=== PATIENT | female | born 1995 | race Caucasian/White ===

== ENCOUNTER 2016-09-18 18:29 | Emergency (ER) | payer OTHER ==
--- NOTE | 2016-09-18 18:49 | PDOC ---
Rapid Medical Evaluation Medical Evaluation: Allergies Allergy/AdvReac Type Severity Reaction Status Date / Time shellfish derived Allergy Verified 09/18/16 18:46 09/18/16 18:46 20 yo F c/o right sided diff hearing after taking zithromax 500mg (@1530hrs). Pt was seen today by her PMD (DR. Covarrubias) for right earache. Informed that she has an (R) ear infection and was prescribed zpak.
[2016-09-18 18:50] VITALS: BP 145/90; PULSE 129; TEMP 98.2; BMI 22.4
[2016-09-18] MEDS ORDERED: IBUPROFEN 600 MG TABLET (FP) PO ONE (19:09)
[2016-09-18] MEDS ORDERED: IBUPROFEN 400 MG TABLET (FP) PO ONE (19:18)
--- NOTE | 2016-09-18 19:25 | PDOC ---
History of Present Illness - General Chief Complaint: Ear Problem Stated Complaint: EAR PAIN Time Seen by Provider: 09/18/16 18:50 History Source: Patient Exam Limitations: No Limitations - History of Present Illness Initial Comments: 09/18/16 19:20 20 yr female started zpack today for ear infection and pt states after taking the medication she suddenly had increase in ear pain, causing severe pain right ear and sinus pain. Pt tearful afraid she is having allergic reaction to the antibiotic, 09/18/16 19:28 Severity: mild Associated Symptoms: reports: other (ear pain ) Past History - Past Medical History Allergies/Adverse Reactions: Allergies Allergy/AdvReac Type Severity Reaction Status Date / Time shellfish derived Allergy Verified 09/18/16 18:46 Home Medications: Ambulatory Orders Amoxicillin - [Amoxicillin 875mg Tablet -] 875 mg PO BID #14 tab 09/18/16 Ibuprofen 600 mg PO TID PRN #20 tablet 09/18/16 Oxycodone HCl/Acetaminophen [Percocet 5-325 mg Tablet] 1 tab PO Q6H PRN #4 tablet MDD 4 09/18/16 Anemia: Yes Other medical history: vertigo - Immunization History Immunization Up to Date: Yes - Psycho/Social/Smoking Cessation Hx Anxiety: No Suicidal Ideation: No Smoking History: Never smoked Have you smoked in the past 12 months: No Information on smoking cessation initiated: No Hx Alcohol Use: No Drug/Substance Use Hx: No Substance Use Type: None Review of Systems - Review of Systems Able to Perform ROS?: Yes Is the patient limited Egyptian proficient: No Constitutional: No: Symptoms Reported HEENTM: Yes: See HPI *Physical Exam - Vital Signs Last Vital Signs Temp Pulse Resp BP Pulse Ox 98.2 F 129 H 20 145/90 100 09/18/16 18:47 09/18/16 18:47 09/18/16 18:47 09/18/16 18:47 09/18/16 18:47 - Physical Exam General Appearance: Yes: Nourished, Appropriately Dressed HEENT: positive: EOMI, PARMJIT, Pharynx Normal, Pharyngeal Erythema, Nasal Congestion, Sinus Tenderness, TM Dull, TM Erythema. negative: Tonsillar Exudate , Tonsillar Erythema Neck: positive: Supple Respiratory/Chest: positive: Lungs Clear, Normal Breath Sounds Cardiovascular: positive: Regular Rhythm, Regular Rate Gastrointestinal/Abdominal: positive: Normal Bowel Sounds, Soft Musculoskeletal: positive: Normal Inspection Extremity: positive: Normal Capillary Refill, Normal Inspection, Normal Range of Motion Integumentary: positive: Normal Color, Dry, Warm Neurologic: positive: Fully Oriented, Alert, Normal Mood/Affect, Normal Response , Motor Strength 5 Medical Decision Making - Medical Decision Making 09/18/16 19:21 cc: ear pain for 2 days sore throat, nasal congestion sinus tenderness no fever no vomiting or rash will give motrin , apply topical lidocaine soaked cotton ball in ear for comfort will change to Amoxicllin *DC/Admit/Observation/Transfer Diagnosis at time of Disposition: Acute otitis media Qualifiers: Otitis media type: other nonsuppurative Laterality: right Recurrence: not specified Qualified Code(s): H65.191 - Other acute nonsuppurative otitis media, right ear Acute maxillary sinusitis Qualifiers: Recurrence: non-recurrent Qualified Code(s): J01.00 - Acute maxillary sinusitis , unspecified - Discharge Dispostion Disposition: HOME Condition at time of disposition: Improved - Prescriptions Prescriptions: Amoxicillin - [Amoxicillin 875mg Tablet -] 875 mg PO BID #14 tab Ibuprofen 600 mg PO TID PRN #20 tablet PRN Reason: Pain Oxycodone HCl/Acetaminophen [Percocet 5-325 mg Tablet] 1 tab PO Q6H PRN #4 tablet MDD 4 PRN Reason: Severe Pain - Referrals Referrals: STAFF,NOT ON [Primary Care Provider] - Ted Thayer MD [Staff Physician] - - Patient Instructions Additional Instructions: follow with ENT tomorrow take Amoxicllin as directed for 7 days STOP taking Zpack take motrin 600mg every 6hrs for pain take percocet for severe pain nothing in the ear, no water or Qtips - Post Discharge Activity Work/School Note: Back to School
== END 2016-09-18 19:45 | disposition home or self-care (01) ==
LOC: JER 18:29 → JERFT 18:29
DX: H65.191 Other acute nonsuppurative otitis media, right ear (principal)
CPT/HCPCS: 99281-25

== ENCOUNTER 2017-09-24 00:16 | Emergency (ER) | payer OTHER ==
[2017-09-24 00:26] VITALS: TEMP 98; BMI 24.4
[2017-09-24 00:38] VITALS: BP 122/85; PULSE 103
[2017-09-24] MEDS ORDERED: diphenhydrAMINE HCL 25 MG CAPSULE (FP) PO ONE ×2 (01:00→01:01)
--- NOTE | 2017-09-24 01:00 | PDOC ---
History of Present Illness <Alejandra Lamas - Last Filed: 09/24/17 01:05> - General History Source: Patient Exam Limitations: No Limitations - History of Present Illness Initial Comments: 09/24/17 01:08 The patient is a 21 year old female with no significant past medical history who presents to the ED complaining of hives that began this evening. The patient was recently diagnosed with the flu and took her first dose of Tamiflu today prior to the onset of her symptoms. She reports experiencing hives on her torso and upper arms, which resolved after approximately 2 hours on their own. She also reports difficulty breathing, prompting her to come to the ED. The patient is unsure whether the SOB is secondary to an allergy or congestion. Otherwise no facial swelling or difficulty swallowing. No lightheadedness or LOC. Symptoms are improved in the ED. <Patria Jonas - Last Filed: 09/24/17 01:15> - General Chief Complaint: Allergic Reaction Stated Complaint: ALLERGIC RX TO TAMIFLU Time Seen by Provider: 09/24/17 00:38 Past History - Past Medical History Anemia: Yes COPD: No - Immunization History Immunization Up to Date: Yes - Suicide/Smoking/Psychosocial Hx Smoking History: Never smoked Have you smoked in the past 12 months: No Information on smoking cessation initiated: No Hx Alcohol Use: No Drug/Substance Use Hx: No Substance Use Type: None <Alejandra Lamas - Last Filed: 09/24/17 01:05> <Patria Jonas - Last Filed: 09/24/17 01:15> - Past Medical History Allergies/Adverse Reactions: Allergies Allergy/AdvReac Type Severity Reaction Status Date / Time oseltamivir [From Tamiflu] Allergy Verified 09/24/17 00:22 shellfish derived Allergy Verified 09/18/16 18:46 Home Medications: Ambulatory Orders Amoxicillin - [Amoxicillin 875mg Tablet -] 875 mg PO BID #14 tab 09/18/16 Ibuprofen 600 mg PO TID PRN #20 tablet 09/18/16 Oxycodone HCl/Acetaminophen [Percocet 5-325 mg Tablet] 1 tab PO Q6H PRN #4 tablet MDD 4 09/18/16 Review of Systems - Review of Systems Able to Perform ROS?: Yes Comments:: 09/24/17 01:11 GENERAL/CONSTITUTIONAL: +Fever, malaise. HEAD, EYES, EARS, NOSE AND THROAT: +Sore throat. No change in vision. CARDIOVASCULAR: No chest pain or lightheadedness. RESPIRATORY: +Difficulty breathing (improved). No wheezing or hemoptysis. GASTROINTESTINAL: No abdominal pain, diarrhea or constipation. GENITOURINARY: No dysuria, frequency, or change in urination. MUSCULOSKELETAL: +Diffuse myalgias. No joint pain. No neck or back pain. SKIN: +Hives (resolved) NEUROLOGIC: No headache, vertigo, loss of consciousness, or change in strength/ sensation. ENDOCRINE: No increased thirst. No abnormal weight change. HEMATOLOGIC/LYMPHATIC: No anemia, easy bleeding, or history of blood clots. ALLERGIC/IMMUNOLOGIC: No hives or skin allergy. <Patria Jonas - Last Filed: 09/24/17 01:15> *Physical Exam - Vital Signs Last Vital Signs Temp Pulse Resp BP Pulse Ox 98 F 103 H 19 122/85 100 09/24/17 00:19 09/24/17 00:37 09/24/17 00:19 09/24/17 00:37 09/24/17 00:37 <Alejandra Lamas - Last Filed: 09/24/17 01:05> - Vital Signs Last Vital Signs Temp Pulse Resp BP Pulse Ox 98 F 103 H 19 122/85 100 09/24/17 00:19 09/24/17 00:37 09/24/17 00:19 09/24/17 00:37 09/24/17 00:37 - Physical Exam Comments: 09/24/17 01:14 GENERAL: Awake, alert, and fully oriented, in no acute distress HEAD: No signs of trauma EYES: PERRLA, EOMI, sclera anicteric, conjunctiva clear. No angioedema. ENT: Auricles normal inspection, nares patent. Moist mucosa. Airway is patent with midline uvula that is nonedematous. NECK: Normal ROM, supple, no JVD, or masses. +nasal congestion. LUNGS: Breath sounds equal, clear to auscultation bilaterally. No wheezes, and no crackles. No stridor. No respiratory distress. HEART: Regular rate and rhythm, normal S1 and S2, no murmurs, rubs or gallops ABDOMEN: Soft, nontender, normoactive bowel sounds. No guarding, no rebound. No masses EXTREMITIES: Normal range of motion, no edema. No clubbing or cyanosis. No cords, erythema, or tenderness NEUROLOGICAL: Alert and oriented x 3. Moves all extremities. Face is symmetric. SKIN: Warm, Dry, normal turgor, no rashes or lesions noted. <Patria Jonas - Last Filed: 09/24/17 01:15> ED Treatment Course - Medications Given in the ED: ED Medications Discontinued Medications Generic Name Dose Route Start Last Admin Trade Name Cezar PRN Reason Stop Dose Admin Diphenhydramine HCl 25 mg 09/24/17 01:00 09/24/17 01:02 Benadryl - PO 09/24/17 01:01 25 mg ONCE ONE Administration <Patria Jonas - Last Filed: 09/24/17 01:15> Medical Decision Making - Medical Decision Making 09/24/17 01:01 this 21 yo female was doag with influenza ands tonight she took a tamiflu tablet and developed hives -lungs cta b/l -uvula midline,no edema -no angioedema pt has multiple allergies and alread has an epipen at home -her hives resolved -pt told to stop tamiflu <Alejandra Lamas - Last Filed: 09/24/17 01:05> *DC/Admit/Observation/Transfer <Alejandra Lamas - Last Filed: 09/24/17 01:05> - Attestations Scribe Attestion: 09/24/17 01:15 Documentation prepared by Patria Jonas, acting as registered medical assistant for Alejandra Lamas MD. <Patria Jonas - Last Filed: 09/24/17 01:15> Diagnosis at time of Disposition: Hives, Influenza - Discharge Dispostion Disposition: HOME Condition at time of disposition: Stable - Patient Instructions Printed Discharge Instructions: DI for Eye Allergic Reaction Additional Instructions: please stop tamiflu If you develop futher hives,take benadryl Rest and take tyelnol or aleve or motrin for fever and bodyaches For any worsening symptoms return to the emergency department
== END 2017-09-24 01:09 | disposition home or self-care (01) ==
LOC: JER 00:16
DX: L50.0 Allergic urticaria (principal); J11.1 Influenza due to unidentified influenza virus with other respiratory manifestations
CPT/HCPCS: 99282-25

== ENCOUNTER 2021-02-23 21:27 | Emergency (ER) | payer OTHER ==
[2021-02-23 21:36] VITALS: BMI 27.9
[2021-02-23] MEDS ORDERED: ACETAMINOPHEN 1000 MG/100 ML VIAL (NON FORMULARY) IVPB ONE (22:34)
[2021-02-23] MEDS ORDERED: SODIUM CHLORIDE 0.9% 500 ML INFUS.BAG IV ONE (22:34)
[2021-02-23] MEDS ORDERED: ACETAMINOPHEN INJECTION 100 ML IVPB ONE (22:36)
[2021-02-23] MEDS ORDERED: ONDANSETRON 4 MG/2 ML VIAL IVPUSH ONE (23:34)
[2021-02-23 23:36] LABS: BASO % 0.7 % (0-2.0); EOS % 0.7 % (0-4.5); HEMATOCRIT 40.1 % (32.4-45.2); HEMOGLOBIN 13.9 GM/dL (10.7-15.3); MCH 31.2 pg (25.7-33.7); MCHC 34.7 g/dl (32.0-36.0); MEAN CELL VOLUME 89.9 fl (80-96); MEAN PLT VOLUME 7.2 fl (7.5-11.1); NEUT % 82.6 % (42.8-82.8); PLATELET COUNT 350 10^3/uL (134-434); RBC 4.46 M/mm3 (3.60-5.2); WHITE BLOOD COUNT 8.4 K/mm3 (4.0-10.0)
[2021-02-23] MEDS ORDERED: ONDANSETRON 4 MG/2 ML VIAL ONE (23:36)
[2021-02-23 23:46] LABS: INR 0.9 (0.83-1.09); PROTHROMBIN TIME (PATIENT) 10.9 SEC (9.7-13.0)
[2021-02-23 23:49] LABS: ACTIVATED PTT 34.5 SECONDS (25.2-36.5)
[2021-02-23 23:57] LABS: CALCIUM 8.6 mg/dL (8.5-10.1)
[2021-02-23 23:58] LABS: ALBUMIN 3.8 g/dl (3.4-5.0); MAGNESIUM 1.8 mg/dL (1.8-2.4)
[2021-02-24 00:01] LABS: CREATININE 0.7 mg/dL (0.55-1.3); PHOSPHOROUS 3.7 mg/dL (2.5-4.9)
[2021-02-24 00:02] LABS: BILIRUBIN,TOTAL 0.5 mg/dL (0.2-1); TOT PROT 7.2 g/dl (6.4-8.2)
[2021-02-24] MEDS ORDERED: SODIUM CHLORIDE 0.9% 500 ML INFUS.BAG IV ONE (01:22)
[2021-02-24 01:56] LABS: URINE APPEARANCE CLEAR; URINE BILIRUBIN NEGATIVE (NEGATIVE); URINE COLOR YELLOW; URINE GLUCOSE (UA) NEGATIVE (NEGATIVE); URINE KETONE 1+ (NEGATIVE); URINE LEUK ESTERASE NEGATIVE (NEGATIVE); URINE NITRITE NEGATIVE (NEGATIVE); URINE PROTEIN NEGATIVE (NEGATIVE); URINE UROBILINOGEN 0.2 mg/dL (0.2-1.0)
[2021-02-24 04:09] VITALS: BP 122/80; PULSE 99; TEMP 98.6
== END 2021-02-24 04:08 | disposition home or self-care (01) ==
LOC: JER 21:27
PROC: 3E033NZ Introduction of Analgesics, Hypnotics, Sedatives into Peripheral Vein, Percutaneous Approach (ICD-10-PCS; principal; 2021-02-23)
PROC: 3E033GC Introduction of Other Therapeutic Substance into Peripheral Vein, Percutaneous Approach (ICD-10-PCS; 2021-02-23)
DX: K52.9 Noninfective gastroenteritis and colitis, unspecified (principal); R11.2 Nausea with vomiting, unspecified
CPT/HCPCS: 36415; 74177-TC; 80053; 81003; 82272; 83605; 83690; 83735; 84100; 85025; 85610; 85730; 86850; 86900; 86901; 87086; 99284-25; J0131

== ENCOUNTER 2021-04-17 23:12 | Emergency (ER) | payer OTHER ==
[2021-04-17 23:18] VITALS: BMI 26.4
[2021-04-17] MEDS ORDERED: morphine SULFATE 4 MG/ML VIAL IVPUSH ONE (23:45)
[2021-04-17] MEDS ORDERED: morphine SULFATE 4 MG/ML VIAL ONE (23:56)
[2021-04-18 00:05] LABS: EPI CELLS 31 /uL (0-25.1); HYALINE CASTS 9 /uL (0-3.1); URINE APPEARANCE CLOUDY; URINE BACTERIA 892 /uL (0-1359); URINE BILIRUBIN NEGATIVE (NEGATIVE); URINE COLOR YELLOW; URINE GLUCOSE (UA) NEGATIVE (NEGATIVE); URINE KETONE NEGATIVE (NEGATIVE); URINE LEUK ESTERASE 2+ (NEGATIVE); URINE NITRITE NEGATIVE (NEGATIVE); URINE PROTEIN NEGATIVE (NEGATIVE); URINE RBC 17 /uL (0-23.9); URINE UROBILINOGEN 0.2 mg/dL (0.2-1.0); URINE WBC 469 /uL (0-25.8)
[2021-04-18 00:07] LABS: HCG,QUALITATIVE URINE Negative
[2021-04-18 00:24] LABS: BASO % 0.3 % (0-2.0); EOS % 1.4 % (0-4.5); HEMATOCRIT 39.9 % (32.4-45.2); HEMOGLOBIN 13.5 GM/dL (10.7-15.3); LYMPH % 33.8 % (8-40); MCH 30.4 pg (25.7-33.7); MEAN CELL VOLUME 89.7 fl (80-96); MEAN PLT VOLUME 7.3 fl (7.5-11.1); MONO % 4.6 % (3.8-10.2); NEUT % 59.9 % (42.8-82.8); PLATELET COUNT 372 10^3/uL (134-434); RBC 4.45 M/mm3 (3.60-5.2); RDW 12.9 % (11.6-15.6)
[2021-04-18 00:48] LABS: CALCIUM 9.3 mg/dL (8.5-10.1)
[2021-04-18 00:49] LABS: ALBUMIN 3.9 g/dl (3.4-5.0); BLOOD UREA NITROGEN 19.6 mg/dL (7-18)
[2021-04-18 00:52] LABS: CREATININE 0.7 mg/dL (0.55-1.3)
[2021-04-18 00:53] LABS: BILIRUBIN,TOTAL 0.7 mg/dL (0.2-1)
[2021-04-18] MEDS ORDERED: morphine SULFATE 4 MG/ML VIAL IVPUSH ONE (04:06)
[2021-04-18] MEDS ORDERED: morphine SULFATE 4 MG/ML VIAL ONE (05:01)
[2021-04-18 07:08] VITALS: BP 119/74; PULSE 89; TEMP 97.8
[2021-04-18] MEDS ORDERED: SODIUM CHLORIDE 0.9% 500 ML INFUS.BAG IV ONE (07:28)
[2021-04-18] MEDS ORDERED: CEFTRIAXONE 1,000 MG in DEXTROSE 5%-WATER - 50 ML IVPB ONE (07:29)
[2021-04-18] MEDS ORDERED: CEFTRIAXONE 1 GM/50 ML BAG ONE (07:49)
[2021-04-18] MEDS ORDERED: ACETAMINOPHEN 500 MG TABLET (FP) PO ONE (10:40)
[2021-04-18] MEDS ORDERED: ACETAMINOPHEN 325 MG TABLET (FP) ONE (11:01)
== END 2021-04-18 12:09 | disposition home or self-care (01) ==
LOC: JER 23:12
PROC: 3E033GC Introduction of Other Therapeutic Substance into Peripheral Vein, Percutaneous Approach (ICD-10-PCS; principal; 2021-04-17)
DX: K80.20 Calculus of gallbladder without cholecystitis without obstruction (principal); N30.00 Acute cystitis without hematuria
CPT/HCPCS: 36415; 71046-TC-FY; 74177-TC; 76705-TC; 80053; 81003; 83690; 84703; 85025; 87086; 93005; 93010; 96365; 96375; 96376; 99285-25; Q9967

== ENCOUNTER 2021-04-20 00:44 | Inpatient (IN) | payer OTHER ==
[~2021-04-20 00:44] MED LIST: BUPIVACAINE HCL/PF 0.5% (5MG/ML) 10 ML VIAL IJ ONE
[2021-04-20] MEDS ORDERED: morphine CARPU-JECT 4 MG/1 ML DISP.SYRIN IVPUSH ONE (01:22)
[2021-04-20] MEDS ORDERED: ONDANSETRON 4 MG/2 ML VIAL IVPUSH ONE (01:25)
[2021-04-20] MEDS ORDERED: SODIUM CHLORIDE 1,000 ML IV SCH ×2 (01:30→06:15)
[2021-04-20] MEDS ORDERED: morphine SULFATE 4 MG/ML VIAL ONE (01:41)
[2021-04-20] MEDS ORDERED: ONDANSETRON 4 MG/2 ML VIAL ONE ×2 (01:42→13:53)
[2021-04-20 05:01] LABS: CALCIUM 8.7 mg/dL (8.5-10.1)
[2021-04-20 05:02] LABS: ALBUMIN 3.2 g/dl (3.4-5.0); BLOOD UREA NITROGEN 10.3 mg/dL (7-18)
[2021-04-20 05:05] LABS: CREATININE 0.6 mg/dL (0.55-1.3)
[2021-04-20 05:06] LABS: BILIRUBIN,TOTAL 0.5 mg/dL (0.2-1); TOT PROT 6.5 g/dl (6.4-8.2)
[2021-04-20 05:11] LABS: BASO % 0.3 % (0-2.0); EOS % 0.7 % (0-4.5); HEMATOCRIT 34.1 % (32.4-45.2); HEMOGLOBIN 11.9 GM/dL (10.7-15.3); MCH 31.5 pg (25.7-33.7); MCHC 34.9 g/dl (32.0-36.0); MEAN CELL VOLUME 90.2 fl (80-96); MEAN PLT VOLUME 7.6 fl (7.5-11.1); MONO % 6.5 % (3.8-10.2); NEUT % 76.5 % (42.8-82.8); PLATELET COUNT 376 10^3/uL (134-434); RBC 3.78 M/mm3 (3.60-5.2); RDW 13.2 % (11.6-15.6); WHITE BLOOD COUNT 8.9 K/mm3 (4.0-10.0)
[2021-04-20 05:17] VITALS: BMI 27.3
[2021-04-20] MEDS ORDERED: ONDANSETRON 4 MG/2 ML VIAL IVPUSH PRN ×2 (06:04→13:35)
[2021-04-20] MEDS ORDERED: morphine CARPU-JECT 8 MG/1 ML DISP.SYRIN IVPUSH SCH (06:15)
[2021-04-20] MEDS ORDERED: MORPHINE SULFATE 2 MG/ML VIAL IVPUSH PRN (06:25)
[2021-04-20] MEDS ORDERED: PIPERACILLIN/TAZOB 3.375 GM 3.375 GM in DEXTROSE 5%-WATER - 50 ML IVPB ONE (07:15)
[2021-04-20] MEDS ORDERED: PIPERACILLIN/TAZOBACTAM 3.375 GM VIAL IVPB ONE (07:55)
[2021-04-20] MEDS ORDERED: DEXTROSE 5%-WATER - 50 ML IVPB ONE (07:56)
[2021-04-20 08:31] LABS: BASO % 0.5 % (0-2.0); EOS % 0.7 % (0-4.5); HEMOGLOBIN 12.2 GM/dL (10.7-15.3); MCHC 34.7 g/dl (32.0-36.0); MEAN CELL VOLUME 89.5 fl (80-96); MEAN PLT VOLUME 7.1 fl (7.5-11.1); MONO % 5.5 % (3.8-10.2); NEUT % 66.3 % (42.8-82.8); PLATELET COUNT 363 10^3/uL (134-434); RBC 3.92 M/mm3 (3.60-5.2); RDW 12.9 % (11.6-15.6); WHITE BLOOD COUNT 6.4 K/mm3 (4.0-10.0)
[2021-04-20 08:36] LABS: INR 0.98 (0.83-1.09)
[2021-04-20 08:51] LABS: CALCIUM 8.7 mg/dL (8.5-10.1)
[2021-04-20 08:52] LABS: ALBUMIN 3.3 g/dl (3.4-5.0)
[2021-04-20 08:55] LABS: CREATININE 0.5 mg/dL (0.55-1.3)
[2021-04-20 08:56] LABS: BILIRUBIN,TOTAL 0.7 mg/dL (0.2-1); TOT PROT 6.7 g/dl (6.4-8.2)
[2021-04-20] MEDS ORDERED: PANTOPRAZOLE SODIUM 40 MG VIAL IVPUSH SCH (10:00)
[2021-04-20] MEDS ORDERED: CEPHALEXIN MONOHYDRATE 500 MG CAPSULE (UD) PO SCH (10:00)
[2021-04-20] MEDS ORDERED: BUPIVACAINE HCL/PF 0.5% (5MG/ML) 10 ML VIAL ONE (10:41)
[2021-04-20] MEDS ORDERED: MIDAZOLAM HCL 2 MG/2 ML SINGLE DOSE VIAL ONE (10:51)
[2021-04-20] MEDS ORDERED: ACETAMINOPHEN INJECTION 100 ML IVPB ONE (11:03)
[2021-04-20] MEDS ORDERED: ROCURONIUM BROMIDE 50 MG/5 ML SYRINGE ONE (11:11)
[2021-04-20] MEDS ORDERED: ceFAZolin 2 GRAM PREMIX BAG IVPB ONE (11:15)
[2021-04-20] MEDS ORDERED: HYDROmorphone HCl 2 MG/ML VIAL ONE (11:16)
[2021-04-20] MEDS ORDERED: BUPIVACAINE HCL/PF 0.5% (5MG/ML) 10 ML VIAL IJ ONE ×2 (12:21→12:33)
[2021-04-20] MEDS ORDERED: NEOSTIGMINE METHYLSULFATE 0.5 MG/1 ML - 10 ML MDV ONE (12:33)
[2021-04-20] MEDS ORDERED: PROMETHAZINE HCL 25 MG/1 ML VIAL IVPB PRN (12:57)
[2021-04-20] MEDS ORDERED: LACTATED RINGERS SOLUTION 1,000 ML IV SCH (13:00)
[2021-04-20] MEDS ORDERED: ACETAMINOPHEN 325 MG TABLET (FP) PO PRN (13:04)
[2021-04-20] MEDS: SODIUM CHLORIDE 1,000 ML IV SCH (14:38)
[2021-04-20] MEDS: morphine SULFATE 4 MG/ML VIAL IVPUSH PRN ×2 (15:43→23:55)
[2021-04-20] MEDS: oxyCODONE HCL 5 MG TABLET PO PRN (19:58)
[2021-04-20] MEDS ORDERED: BENZOCAINE/MENTH/CETYLPYRD CL 1 EACH LOZENGE MM PRN (20:45)
[2021-04-21] MEDS: SODIUM CHLORIDE 1,000 ML IV SCH (01:26)
[2021-04-21] MEDS: oxyCODONE HCL 5 MG TABLET PO PRN (01:34)
[2021-04-21] MEDS ORDERED: SUCCINYLCHOLINE CHLORIDE 200 MG/10 ML SYRINGE ONE (04:57)
[2021-04-21 06:24] VITALS: TEMP 98.1
[2021-04-21 08:44] LABS: BASO % 0.2 % (0-2.0); EOS % 0.1 % (0-4.5); HEMOGLOBIN 11.6 GM/dL (10.7-15.3); LYMPH % 21.7 % (8-40); MCH 31.3 pg (25.7-33.7); MCHC 34.1 g/dl (32.0-36.0); MEAN CELL VOLUME 91.9 fl (80-96); MEAN PLT VOLUME 7.7 fl (7.5-11.1); MONO % 6.6 % (3.8-10.2); NEUT % 71.4 % (42.8-82.8); PLATELET COUNT 389 10^3/uL (134-434); RDW 13.3 % (11.6-15.6)
[2021-04-21 09:16] LABS: ALBUMIN 3.3 g/dl (3.4-5.0)
[2021-04-21 09:17] LABS: BLOOD UREA NITROGEN 6.6 mg/dL (7-18); CALCIUM 8.8 mg/dL (8.5-10.1)
[2021-04-21 09:18] LABS: MAGNESIUM 1.8 mg/dL (1.8-2.4)
[2021-04-21 09:20] LABS: CREATININE 0.5 mg/dL (0.55-1.3); TOT PROT 6.3 g/dl (6.4-8.2)
[2021-04-21 09:21] LABS: BILIRUBIN,TOTAL 0.6 mg/dL (0.2-1)
[2021-04-21] MEDS ORDERED: PANTOPRAZOLE SODIUM 40 MG VIAL IVPUSH SCH (10:00)
[2021-04-21] MEDS ORDERED: PANTOPRAZOLE 40 MG TABLET PO SCH (10:00)
[2021-04-21 14:15] VITALS: BP 120/60; PULSE 87
== END 2021-04-21 14:00 | disposition home or self-care (01) | DRG 263 ==
LOC: JER 00:44 → JERBED 01:29 → J8W 04:46
PROVIDERS: ADMIT Internal Medicine; ATTEND Nurse Practitioner Family
PROC: 0FT44ZZ Resection of Gallbladder, Percutaneous Endoscopic Approach (ICD-10-PCS; principal; 2021-04-20 10:30)
DX: K80.00 Calculus of gallbladder with acute cholecystitis without obstruction (principal); N39.0 Urinary tract infection, site not specified; G43.909 Migraine, unspecified, not intractable, without status migrainosus; F31.9 Bipolar disorder, unspecified; D50.9 Iron deficiency anemia, unspecified; N92.0 Excessive and frequent menstruation with regular cycle
CPT/HCPCS: 36415; 80053; 83735; 84703; 85025; 85610; 94760; 99285-25; C9803; J0131; U0003; U0005

== ENCOUNTER 2021-06-10 01:17 | Emergency (ER) | payer OTHER ==
[2021-06-10 01:53] VITALS: BMI 27.9
[2021-06-10] MEDS ORDERED: LACTATED RINGERS SOLUTION 1000 ML INFUS.BAG IV ONE (01:53)
[2021-06-10] MEDS ORDERED: ACETAMINOPHEN 1000 MG/100 ML VIAL IVPB ONE (01:53)
[2021-06-10] MEDS ORDERED: ACETAMINOPHEN INJECTION 100 ML IVPB ONE (02:16)
[2021-06-10 03:21] LABS: BASO % 0.3 % (0-2.0); EOS % 1.1 % (0-4.5); HEMATOCRIT 39.2 % (32.4-45.2); HEMOGLOBIN 13.8 GM/dL (10.7-15.3); MCH 31.3 pg (25.7-33.7); MCHC 35.1 g/dl (32.0-36.0); MEAN CELL VOLUME 89.1 fl (80-96); MEAN PLT VOLUME 7.4 fl (7.5-11.1); MONO % 5.5 % (3.8-10.2); NEUT % 64.1 % (42.8-82.8); PLATELET COUNT 364 10^3/uL (134-434); RDW 12.9 % (11.6-15.6); WHITE BLOOD COUNT 8.4 K/mm3 (4.0-10.0)
[2021-06-10 03:46] LABS: PH,URINE 7.5 (5.0-8.0); URINE APPEARANCE CLEAR; URINE BILIRUBIN NEGATIVE (NEGATIVE); URINE COLOR YELLOW; URINE GLUCOSE (UA) NEGATIVE (NEGATIVE); URINE KETONE NEGATIVE (NEGATIVE); URINE LEUK ESTERASE NEGATIVE (NEGATIVE); URINE NITRITE NEGATIVE (NEGATIVE); URINE PROTEIN NEGATIVE (NEGATIVE); URINE UROBILINOGEN 0.2 mg/dL (0.2-1.0)
[2021-06-10 03:49] LABS: CALCIUM 8.9 mg/dL (8.5-10.1)
[2021-06-10 03:50] LABS: ALBUMIN 3.6 g/dl (3.4-5.0); BLOOD UREA NITROGEN 15.5 mg/dL (7-18)
[2021-06-10 03:53] LABS: CREATININE 0.8 mg/dL (0.55-1.3)
[2021-06-10 03:54] LABS: BILIRUBIN,TOTAL 0.2 mg/dL (0.2-1); TOT PROT 7.1 g/dl (6.4-8.2)
[2021-06-10] MEDS ORDERED: morphine CARPU-JECT 2 MG/1 ML DISP.SYRIN IVPUSH ONE (04:29)
[2021-06-10] MEDS ORDERED: morphine SULFATE 4 MG/ML VIAL ONE (04:32)
[2021-06-10] MEDS ORDERED: ONDANSETRON 4 MG/2 ML VIAL IVPUSH ONE (04:51)
[2021-06-10] MEDS ORDERED: ONDANSETRON 4 MG/2 ML VIAL ONE (04:51)
[2021-06-10] MEDS ORDERED: POLYETHYLENE GLYCOL 3350 119 GM BTL PO ONE (05:51)
[2021-06-10] MEDS ORDERED: POLYETHYLENE GLYCOL (HEALTHYLAX) 3350 17 GM PACKET ONE (06:04)
[2021-06-10] MEDS ORDERED: IBUPROFEN 400 MG TABLET (FP) PO ONE (06:30)
[2021-06-10] MEDS ORDERED: ACETAMINOPHEN 325 MG TABLET (FP) PO ONE (06:35)
[2021-06-10 06:54] VITALS: BP 121/74; PULSE 64; TEMP 98
== END 2021-06-10 06:34 | disposition home or self-care (01) ==
LOC: JER 01:17
PROC: 3E033NZ Introduction of Analgesics, Hypnotics, Sedatives into Peripheral Vein, Percutaneous Approach (ICD-10-PCS; principal; 2021-06-10)
PROC: 3E033GC Introduction of Other Therapeutic Substance into Peripheral Vein, Percutaneous Approach (ICD-10-PCS; 2021-06-10)
PROC: 3E033GC Introduction of Other Therapeutic Substance into Peripheral Vein, Percutaneous Approach (ICD-10-PCS; 2021-06-10)
DX: K59.09 Other constipation (principal); R10.9 Unspecified abdominal pain
CPT/HCPCS: 36415; 74177-TC; 80053; 81003; 84703; 85025; 87086; 99285-25; J0131